=== PATIENT | female | born 1935 | race Caucasian/White ===

== ENCOUNTER 2018-12-09 10:05 | Inpatient (IN) ==
[2018-12-09 10:48] LABS: BASO# 0.02 X1000 (0.0-0.2); BASO% 0.1 % (0.0-0.8); EOS# 0.05 X1000 (0.0-0.7); EOS% 0.2 % (0.0-10.0); HEMATOCRIT 36.6 % (37.0-47.0); HEMOGLOBIN 12.4 g/dL (12.0-16.0); IMM GRAN% 0.4 % (0.0-0.5); LYMPH# 1.27 X1000 (1.2-3.4); LYMPH% 5.3 % (20.5-51.1); MCH 30.9 PG (27-31); MCHC 33.9 g/dL (33-37); MCV 91.3 FL (81-99); MONO# 1.01 X1000 (0.11-0.59); MONO% 4.2 % (1.7-9.3); MPV 10.1 FL (7.4-10.4); NEUT# 21.62 X1000 (1.4-6.5); NEUT% 89.8 % (42.2-75.2); PLT 378 X1000 (130-400); RBC 4.01 XMIL (4.2-5.4); RDW 12.7 % (11.5-14.5); WBC 24.07 X1000 (4.8-10.8)
--- NOTE | 2018-12-09 10:57 | PROVIDER DOCUMENTATION ---
HPI-General Adult - General Chief Complaint: General Adult Stated Complaint: WBC HIGH -URGENT CARE REFERRED Time Seen by Provider: 12/09/18 10:29 Source: patient, family (Daughter) Allergies/Adverse Reactions: Patient Allergies Allergy/AdvReac Type Severity Reaction Status Date / Time Sulfa (Sulfonamide Allergy RASH Verified 12/09/18 10:33 Antibiotics) codeine AdvReac NAUSEA/VOMI Verified 12/09/18 10:33 TING Home Medications: Home Medication List Medication Instructions Recorded Confirmed Last Taken Type Estrogens, Conjugated [Premarin] 1.25 mg PO DAILY 12/09/18 12/09/18 Unknown History Fluticasone/Salmet 100/50 INH 2 puff INH ORDERED 12/09/18 12/09/18 Unknown History [Advair 100/50 Diskus] Levothyroxine [Synthroid] 75 microgm PO DAILY 12/09/18 12/09/18 Unknown History Montelukast Sodium [Singulair] 1 tab PO DAILY 12/09/18 12/09/18 Unknown History Omeprazole [Prilosec] 40 mg PO DAILY 12/09/18 12/09/18 Unknown History Tiotropium Cyrus Inhaler 18 mcg INHALATION DAILY 12/09/18 12/09/18 Unknown History [Spiriva] Trazodone [Desyrel] 100 mg PO HS PRN PRN 12/09/18 12/09/18 Unknown History Triamterene/Hydrochlorothiazid 1 ea PO DAILY 12/09/18 12/09/18 Unknown History [Dyazide 37.5-25 Capsule] - History of Present Illness -Gen Adult Nature of Presenting Problems: Patient is an 83yo F who presents after being sent from Urgent Care. Patient reports she began experiencing fever, nausea, vomiting, and diarrhea 4 days ago. Reports she thought it was just a stomach virus that would pass. States yesterday she still had a fever so she went to an urgent care. Reports the urgent care diagnosed her with Bronchitis and a UTI. Reports she was sent home with Levaquin prescription for which she took the dose yesterday. Patient states she received a call from the urgent care this morning saying her WBC count was 25,000 and to come to the ER for IV antibiotics. Patient reports her symptoms have improved a little. Reports she is mildly nauseous but has not vomited today. Also reports she had 3 episodes of diarrhea today, but also contributes that to the Levaquin. Reports mild SOB. States she had her R lung removed in 2010 d/t lung cancer for which she has been in remission since. Patient denies abdominal pain, dizziness/weakness, cough, or CP. Reports her fever has resolved. Patient is able to speak in full sentences, no accessory muscle usage noted, no retractions noted, and no evidence of respiratory distress/compromise. Location of Pain/Injury: reports: generalized Pain Radiation: reports: no radiation Quality of Pain: reports: aching Severity: reports: mild Onset/Duration: reports: 4 days ago Timing: reports: still present Context/Activities at Onset: reports: none Modifying Factors: improves with: nothing Associated Symptoms: reports: diarrhea, fever/chills, genitourinary problems, nausea, shortness of breath. denies: chest pain, cough, diaphoresis, dizziness, EENT symptoms, headaches, sinus congestion/drainage, pain with inspiration, swelling/mass in abdomen, syncope, weakness, trouble walking Similar Symptoms Previously?: No Recently seen or treated by another doctor?: Yes (Seen at urgent care yesterday) Review of Systems - Adult - REVIEW OF SYSTEMS - ADULT Constitutional: reports: see HPI, chills, fever Eyes: denies: blurred vision, double vision, eye pain Ears, Nose, Mouth & Throat: denies: ear pain, sinus problem Cardiovascular: denies: chest pain, palpitations Respiratory: reports: shortness of breath. denies: cough, wheezing Gastrointestinal: reports: diarrhea, nausea. denies: abdominal pain, vomiting Genitourinary: reports: see HPI Musculoskeletal: reports: no symptoms reported Integumentary: reports: no symptoms reported Neurological: denies: dizziness/vertigo, headache/migraines Psychiatric: reports: no symptoms reported Endocrine: reports: no symptoms reported Past History - Adult - PAST MEDICAL HISTORY-ADULT Review of Records: reports: Nursing Assessment Review, Medications Reviewed Respiratory: reports: cancer - IMMUNIZATION STATUS Childhood Immunizations: See Nurse Assessment Flu Vaccine: See Nurse Assessment - FAMILY HISTORY Family History: reviewed, not pertinent - SOCIAL HISTORY Smoking: non-smoker Physical Exam-General - PHYSICAL EXAM-ADULT Initial Vital Signs Reviewed: Yes - CONSTITUTIONAL General Appearance: appears well, alert, no apparent distress. negative: lethargic, slow to respond, obtunded - EYES Eyes: PERRL/EOMI, pink conjunctivae - HEAD, EARS, NOSE, MOUTH & THROAT HENMT: normocephalic/atraumatic, moist mucous membranes - NECK Neck: non-tender, full range of motion, supple, normal inspection - RESPIRATORY Respiratory: chest non-tender, lungs clear, no pleuratic chest pain, no respiratory distress, no accessory muscle use. negative: normal breath sounds (decrased breath sounds on R d/t lobectomy), crackles, rales, rhonchi, stridor, wheezing, retractions, splinting - CARDIOVASCULAR Cardiovascular: tachycardia (103) - GASTROINTESTINAL (ABDOMEN) Abdominal Exam: soft, no organomegaly, no pulsatile mass, abnormal bowel sounds (hyperactive all quadrants), tenderness (mildly TTP generalized). negative: distended, guarding, rigid, rebound - MUSCULOSKELETAL Back Exam: normal inspection, no CVA tenderness Extremity: normal range of motion, non-tender, normal gait - SKIN Integumentary: normal color, warm/dry - NEUROLOGIC Neurologic: grossly normal - PSYCHIATRIC Psych/Mental Status: normal mood/affect, normal thought content, normal thought process, oriented x 3 Progress - PLAN OF CARE/RESULTS Progress/Plan/Lab Results: Vital Signs - 8 hr 12/09/18 10:08 Temperature 97.8 F Pulse Rate 103 H Respiratory Rate 20 Blood Pressure 155/83 O2 Sat by Pulse Oximetry 97 Laboratory Results - last 24 hr 12/09/18 10:21 WBC 24.07 H RBC 4.01 L Hgb 12.4 Hct 36.6 L MCV 91.3 MCH 30.9 MCHC 33.9 RDW Std Deviation 12.7 Plt Count 378 MPV 10.1 Immature Gran % (Auto) 0.4 Neut % (Auto) 89.8 H Lymph % (Auto) 5.3 L [place] % (Auto) 4.2 Eos % (Auto) 0.2 Baso % (Auto) 0.1 Immature Gran # (Auto) 0.10 H Neut # (Auto) 21.62 H Lymph # (Auto) 1.27 [place] # (Auto) 1.01 H Eos # (Auto) 0.05 Baso # (Auto) 0.02 Orders Category Date Time Status Saline Loc NOW Care 12/09/18 10:30 Active CHEST-2 VIEWS [RAD] Stat Exams 12/09/18 10:41 Ordered AMYLASE [CHEM] Stat Lab 12/09/18 10:21 Received CBC WITH ELECTRONIC DIFF [HEME] Stat Lab 12/09/18 10:21 Completed CK PROFILE [SP CHEM] Stat Lab 12/09/18 10:21 Received COMPREHENSIVE METABOLIC PANEL [CHEM] Stat Lab 12/09/18 10:21 Received D-DIMER [COAG] Stat Lab 12/09/18 10:21 Received LACTATE, PLASMA [CHEM] Stat Lab 12/09/18 10:21 Received LIPASE [CHEM] Stat Lab 12/09/18 10:21 Received PRO B-NATRIURETIC PEPTIDE Stat Lab 12/09/18 10:21 Received PROTIME WITH INR [COAG] Stat Lab 12/09/18 10:21 Received PTT [COAG] Stat Lab 12/09/18 10:21 Received URINALYSIS W/POSS RFLX CULT [URINALYSIS] Stat Lab 12/09/18 10:30 Uncollected EKG [EKG] Stat Ther 12/09/18 10:42 Ordered Result Diagrams: 12/09/18 10:21 12/09/18 10:21 - EKG 1 Time of EKG reading by physician:: 10:49 EKG Read and Signed by:: Jael Mcnamara EKG Interpretation (*Must complete 3 of following elements*): Abnormal Rate: 93 Rhythm: NSR [place]: normal QRS: RBB AK Interval: normal ST Wave: normal - XRAY 1 XRAY: Bilateral XRAY Study: Chest ([facility] [address], [address], [place] [address] Department of Imaging Patient: ANNIKA AVILEZ Date: 12/09/18#: [id number] : 1935DM Status: REG [facility]#: [id number] Age/Sex: 83/FRoom/Bed: Loc: ED Ordering Physician: Kiki Hobson Family Physician: None,PCP Reason for Procedure: mild SOB Signed EXAM: CHEST-2 VIEWS HISTORY: mild SOB TECHNIQUE: Chest two views COMPARISON: 08/18/2017 FINDINGS: The lungs are well expanded. There are extensive postsurgical changes to the right hemithorax. The mediastinum is sh ifted to the right. The heart is not enlarged. The vessels are not distended. There are no infiltrates. No pleural effusions. The overall appearance is similar to the prior exam. IMPRESSION: Stable chest. Electronically signed by Kirill Shetty 12/09/2018 11:20 AM 12/09/18 1120 Interpreting Physician: Kirill Shetty MD Dictated Date/Time: 12/09/18 1119 cc: Kiki Hobson; None,PCP) Impression: See EMR Report - CT/MRI 1 CT Study: Abdomen, Angiogram (Chest), Pelvis Impression: See EMR Report ([address], [address], [place] [address] Department of Imaging Patient: ANNIKA AVILEZ Date: 12/09/18#: [id number] : 6ADM Status: [facility]#: [id number] Age/Sex: 83/FRoom/Bed: Loc: ED Ordering Physician: Kiki Hobson Family Physician: None,PCP Reason for Procedure: abd pain - elevated WBC Signed EXAM: CT ABD/PELVIS/PULM ARTERIES INDICATION: abd pain - elevated WBC TECHNIQUE: This exam was performed using automated exposure control, adjustment of mA or kV according to patient size, and/or use of iterative reconstruction technique. Thin section axial images through the chest and 3-D MIPS were obtained. Standard imaging through the abdomen and pelvis was obtained. COMPARISON: CT chest without contrast dated 04/11/2016. No prior CT of the abdomen and pelvis is available for comparison. FINDINGS: CTA CHEST: There is no evidence of pulmonary embolism. There is patchy aortic atherosclerotic calcification but no evidence of aortic dissection or aneurysm. There is no significant mediastinal or hilar lymphadenopathy. There has been a prior partial pneumonectomy on the right and there is associated rightward mediastinal shift. These changes are stable. There is a stable chest wall deformity on the right related to the surgery. Posterior left lung base is stable. There is no pleural fluid collection and no pneumothorax. No airspace consolidation is appreciated. The regional skeleton is stable. CT ABDOMEN/PELVIS: The liver, gallbladder, spleen, pancreas, and adrenal glands are grossly unremarkable. There is abnormal left renal enhancement in a heterogeneous striated nephrogram pattern. There is surrounding mild perinephric stranding. These findings are most consistent with pyelonephritis. The right kidney is unremarkable. There is no hydronephrosis. The urinary bladder is grossly unremarkable. There has been a prior hysterectomy. There is uncomplicated diverticulosis coli. There is no evidence of bowel obstruction and no focal bowel wall thickening. The remainder of the GI tract is grossly unremarkable. No free abdominal gas or free fluid is identified. There is multilevel spondylosis throughout the lumbar spine. There are degenerative changes of both hips. No suspicious bony lesions are identified. IMPRESSION: 1.Findings consistent with left pyelonephritis. 2.No evidence of pulmonary embolism. 3.Stable postsurgical changes involving the chest. 4.Other incidental/nonacute findings detailed above. Electronically signed by Christiano Birch 12/09/2018 12:38 PM 12/09/18 1238 Interpreting Physician: Christiano Birch MD Dictated Date/Time: 12/09/18 1224 cc: Kiki Hobson; None,PCP) - CONSULTS/PCP/HOSPITALIST Notification #1 *Consult/PCP/Hospitalist*: HILDA Sanders (Hospitalist for Aj) Time Discussed: 13:08 Reason/Comments: Pyelonephritis; leukocytosis; hyponatremia Consult Disposition: Admit Departure - Departure Date of Disposition Decision: 12/09/18 Time of Disposition Decision: 13:09 DIAGNOSIS: Pyelonephritis of left kidney, Hyponatremia Leukocytosis Qualifiers: Leukocytosis type: unspecified Qualified Code(s): D72.829 - Elevated white blood cell count, unspecified Nausea and vomiting Qualifiers: Vomiting type: unspecified Vomiting Intractability: non-intractable Qualified Code(s): R11.2 - Nausea with vomiting, unspecified Disposition: ADMITTED INPATIENT 09 Certified Medical Emergency: Emergent Condition: Stable Referrals and Follow-Ups: None,PCP [Primary Care Provider] - - Critical Care Note This patient required my direct & personal management of CC.: No Attestation - Physician/ ADELINE Attestation Patient care was provided by Advanced Practice Provider:: Yes Advanced Practice Provider:: Kiki Hobson Advanced Practice Provider documentation review:: The Mid-level provider documentation, treatment plan and medical decision making was reviewed by the jeff roberts who agrees with all treatment and medical decision making by the MLP. The physician spent face to face time with patient:: No Advanced Practice Provider documentation review:: Supervising physician onsite and consulted in the evaluation and care of this patient. The physician did not have a face to face encounter with the patient.
[2018-12-09 11:00] LABS: INR 0.84; PROTIME 12.2 Seconds (11.0-16.0); PTT 32.2 Seconds (22.3-41.8)
[2018-12-09 11:03] LABS: D-DIMER 1.28 ug/mLFEU (0.0-0.52)
--- NOTE | 2018-12-09 11:06 | EKG Report ---
Test Performed on : 12/09/2018 10:48:45 AM Test Reason : SOB Blood Pressure : / mmHG Vent. Rate : 093 BPM Atrial Rate : 093 BPM P-R Int : 124 ms QRS Dur : 148 ms QT Int : 372 ms P-R-T Axes : 053 -07 007 degrees QTc Int : 462 ms Normal sinus rhythm. Right bundle branch block Abnormal ECG No previous ECGs available Unconfirmed Result
[2018-12-09 11:09] LABS: ESTIMATED GFR > 60
[2018-12-09 11:10] LABS: AGAP 13; ALB/GLOB RATIO 0.8; ALBUMIN 3.3 g/dL (3.5-5.0); ALKALINE PHOSPHATASE 152 U/L (32-104); AMYLASE 23 U/L (20-200); BUN 19 mg/dL (8-22); CALCIUM 8.7 mg/dL (8.8-10.2); CHLORIDE 85 mmol/L (98-107); COSMO 260; CREATININE 0.8 mg/dL (0.5-0.9); GLUCOSE 150 mg/dL (70-104); GOT 51 U/L (10-30); GPT 25 U/L (10-36); LIPASE 20 U/L (13-60); POTASSIUM 3.7 mmol/L (3.5-5.1); SODIUM 127 mmol/L (136-145); TCO2 29 mmol/L (25-35); TOTAL BILIRUBIN 0.34 mg/dL (0.20-1.00); TOTAL PROTEIN 7.6 g/dL (6.3-8.3)
[2018-12-09] MEDS ORDERED: ZOFRAN IV ONE (11:13)
--- NOTE | 2018-12-09 11:22 | Diag Imaging Result Doc PS360 ---
EXAM: CHEST-2 VIEWS HISTORY: mild SOB TECHNIQUE: Chest two views COMPARISON: 08/18/2017 FINDINGS: The lungs are well expanded. There are extensive postsurgical changes to the right hemithorax. The mediastinum is shifted to the right. The heart is not enlarged. The vessels are not distended. There are no infiltrates. No pleural effusions. The overall appearance is similar to the prior exam. IMPRESSION: Stable chest. Electronically signed by Kirill Shetty 12/09/2018 11:20 AM
[2018-12-09] MEDS ORDERED: NS 1,000 ML IV ONE (11:31)
[2018-12-09 12:15] LABS: URINE SOURCE CLEAN CATCH
[2018-12-09 12:18] LABS: BILIRUBIN URINE NEGATIVE (NEGATIVE); BLOOD URINE TRACE (NEGATIVE); COLOR YELLOW; GLUCOSE URINE NEGATIVE (NEGATIVE); KETONE URINE NEGATIVE (NEGATIVE); LEUKOCYTES URINE NEGATIVE (NEGATIVE); NITRITE URINE NEGATIVE (NEGATIVE); PH URINE 6.5; PROTEIN URINE NEGATIVE (NEGATIVE); SP GRAVITY URINE 1.003; TURBIDITY URINE CLEAR (CLEAR); UROBILINOGEN URINE NORMAL (NORMAL)
[2018-12-09 12:19] LABS: UR EPITHELIAL CELLS <10 /HPF (<10); URINE BACTERIA NEGATIVE /HPF; URINE RBC <10 /HPF (<10); URINE WBC <10 /HPF (<10)
--- NOTE | 2018-12-09 12:41 | Diag Imaging Result Doc PS360 ---
EXAM: CT ABD/PELVIS/PULM ARTERIES INDICATION: abd pain - elevated WBC TECHNIQUE: This exam was performed using automated exposure control, adjustment of mA or kV according to patient size, and/or use of iterative reconstruction technique. Thin section axial images through the chest and 3-D MIPS were obtained. Standard imaging through the abdomen and pelvis was obtained. COMPARISON: CT chest without contrast dated 04/11/2016. No prior CT of the abdomen and pelvis is available for comparison. FINDINGS: CTA CHEST: There is no evidence of pulmonary embolism. There is patchy aortic atherosclerotic calcification but no evidence of aortic dissection or aneurysm. There is no significant mediastinal or hilar lymphadenopathy. There has been a prior partial pneumonectomy on the right and there is associated rightward mediastinal shift. These changes are stable. There is a stable chest wall deformity on the right related to the surgery. Posterior left lung base is stable. There is no pleural fluid collection and no pneumothorax. No airspace consolidation is appreciated. The regional skeleton is stable. CT ABDOMEN/PELVIS: The liver, gallbladder, spleen, pancreas, and adrenal glands are grossly unremarkable. There is abnormal left renal enhancement in a heterogeneous striated nephrogram pattern. There is surrounding mild perinephric stranding. These findings are most consistent with pyelonephritis. The right kidney is unremarkable. There is no hydronephrosis. The urinary bladder is grossly unremarkable. There has been a prior hysterectomy. There is uncomplicated diverticulosis coli. There is no evidence of bowel obstruction and no focal bowel wall thickening. The remainder of the GI tract is grossly unremarkable. No free abdominal gas or free fluid is identified. There is multilevel spondylosis throughout the lumbar spine. There are degenerative changes of both hips. No suspicious bony lesions are identified. IMPRESSION: 1.Findings consistent with left pyelonephritis. 2.No evidence of pulmonary embolism. 3.Stable postsurgical changes involving the chest. 4.Other incidental/nonacute findings detailed above. Electronically signed by Christiano Birch 12/09/2018 12:38 PM
[2018-12-09] MEDS ORDERED: LEVAQUIN 500 MG/D5W 500 MG/100 ML IVPB IV ONE (12:48)
[2018-12-09] MEDS ORDERED: NS 1,000 ML IV SCH (14:15)
[2018-12-09] MEDS ORDERED: ZOFRAN IV PRN (14:40)
[2018-12-09] MEDS ORDERED: TYLENOL PO PRN (14:40)
[2018-12-09] MEDS: LOVENOX SUBQ SCH (16:14)
[2018-12-09] MEDS: ADVAIR 100/50 DISKUS INH SCH (19:55)
--- NOTE | 2018-12-09 19:55 | HISTORY AND PHYSICAL ---
CHIEF COMPLAINT: Subjective fever, nausea, vomiting, and diarrhea 4 days ago. She was seen at an urgent care center and sent here for further evaluation and treatment. HISTORY OF PRESENTING ILLNESS: This is an 83-year-old female who presents to [facility] ER after she was seen at an urgent care center yesterday after experiencing fever, nausea, vomiting, and diarrhea for 4 days prior. The urgent care center diagnosed her with a bronchitis, and a UTI and sent her home with a prescription for Levaquin and she got it filled and took a dose yesterday. States she received a call from the Urgent Care this morning, stating that her white blood cell count was elevated at 25,000 and she needed to come to the emergency room for evaluation. Her symptoms, she states, have improved, but she still mildly nauseous, but has not vomited today. She has had 3 episodes of diarrhea today, but also relates that to starting her Levaquin. She is noted to have had a history of lung cancer and had her right lung removed in 2010 and has been in remission. The fever has resolved. When she arrived her temperature was 97.8 degrees. LABORATORY DATA: Showed a white blood cell count of 24.07. D-dimer of 1.28. Sodium level of 127 with a chloride of 85. Plasma lactate was 1.7. Urinalysis was negative. We did a CT of the abdomen and pelvis and a CTA of the chest. Findings were consistent with a left pyelonephritis and no evidence of pulmonary embolism, so she is being admitted for further evaluation and treatment. PAST MEDICAL HISTORY: Hypothyroidism, GERD, COPD and lung cancer. PAST SURGICAL HISTORY: , hysterectomy and a right upper and middle lobe removal and partial lower lobe removal in 2010. FAMILY HISTORY: Reviewed and noncontributory. SOCIAL HISTORY: She currently lives alone. Denies current tobacco use. States she was a former smoker and quit in 1989. Denied any alcohol or illicit drug use. ALLERGIES: Sulfa and codeine. HOME MEDICATIONS: Will be reviewed and restarted. LABORATORY DATA: Showed a white blood cell count of 24.07, hemoglobin 12.4, hematocrit 36.6, platelets of 378,000. PT and INR of 12.2 and 0.84. D-dimer of 1.28. Sodium 127, potassium 3.7, chloride 85, CO2 29, BUN of 19, creatinine of 0.8, glucose of 150, plasma lactate of 1.7. Amylase and lipase were normal at 23 and 20. Urinalysis was negative. CT of the abdomen and pelvis and a CTA of the chest showed findings consistent of a left pyelonephritis and no evidence of pulmonary embolism. REVIEW OF SYSTEMS: She was positive for a subjective fever, nausea, vomiting, diarrhea. Denied any chest pain, coughing, shortness of breath denied any abdominal pain, constipation, or burning or hurting with urination. PHYSICAL EXAMINATION: VITAL SIGNS: On arrival, she had a temperature of 97.8 degrees, pulse 103, respirations 20, blood pressure 155/83, saturating 97% on room air. GENERAL: This is an 83-year-old female who is sitting up in the bed and answers questions appropriately. HEENT: Normocephalic and atraumatic. Normal ENT inspection. Oropharynx and nares are clear. Eyes: Pupils are equal, round, and reactive to light and accommodation. Extraocular movements are intact. NECK: Normal inspection. Normal range of motion. LUNGS: On the left, were clear. Decreased breath sounds on the right due to her pneumonectomy. Equal lung expansion. Chest wall movement noted. HEART: Regular rate and rhythm. No murmurs, rubs, or gallops. ABDOMEN: Soft, nontender, nondistended. Bowel sounds are present x4 quadrants. MUSCULOSKELETAL: She had 5/5 strength x4 extremities. NEUROLOGICAL: The cranial nerves II through XII appear grossly intact. ASSESSMENT: 1. Left pyelonephritis. 2. Leukocytosis. 3. An elevated D-dimer ruled out for a pulmonary embolus. 4. Hyponatremia. PLAN: She will be admitted to the medical unit at [place]. She uses O2 at 2 L via nasal cannula at bedtime for her chronic obstructive pulmonary disease. We are going to do a venous ultrasound of bilateral lower extremities. Place on Lovenox 40 mg subcutaneous q. 24 hours until we completely rule out for deep vein thrombosis. We have ruled out for a pulmonary embolus. Place her on Levaquin 500 mg IV q. 24. She is on normal saline at 125 mL an hour. We will continue her home medications. Recheck a CBC, BMP in the a.m. Normal saline at 125 mL an hour, and further orders after seen by attending. Dictated by HILDA Curran for Negro Lopez MD Addendum: Patient seen and examined by myself. Agree with HILDA note. It reflects my assessment and plan. Patient is being admitted to hospital for pyelonephritis. Will start Ceftriaxone and will wait for results of urine culture and will check CBC daily. cc: HILDA Curran MD [facility]
[2018-12-09] MEDS ORDERED: LABETALOL IV ONE (21:21)
[2018-12-09] MEDS: SINGULAIR PO SCH (21:56)
[2018-12-09] MEDS: DESYREL PO PRN (21:56)
--- NOTE | 2018-12-09 22:50 | Extremity Venous Study ---
PROCEDURE NAME: Venous U/S Bilateral Legs - 12/09/2018 REQUEST PHYSICIAN: Dr. Rocha. READING PHYSICIAN: Dr. Jasso. KNOCKOUT MACHINE OPERATOR: Zay. INDICATION: Elevated D-dimer. FINDINGS: The deep and superficial veins of both lower extremities were imaged throughout their course. They are compressible, patent, and without thrombus. There are also numerous levels of reflux noted in the right common femoral, greater saphenous veins and the left common femoral, greater saphenous, and superficial femoral veins. INTERPRETATION: No deep venous thrombosis or superficial vein thrombus of either lower extremity. There is deep and superficial reflux bilaterally, as described above. cc: MD Marilyn Laguna CRNP
[2018-12-10] MEDS: PRILOSEC PO SCH (06:36)
[2018-12-10 07:31] LABS: BASO# 0.03 X1000 (0.0-0.2); BASO% 0.2 % (0.0-0.8); EOS# 0.01 X1000 (0.0-0.7); EOS% 0.1 % (0.0-10.0); HEMATOCRIT 36.5 % (37.0-47.0); HEMOGLOBIN 12.1 g/dL (12.0-16.0); IMM GRAN# 0.06 X1000 (0.0-0.04); IMM GRAN% 0.4 % (0.0-0.5); LYMPH# 1.45 X1000 (1.2-3.4); LYMPH% 8.6 % (20.5-51.1); MCH 30.9 PG (27-31); MCHC 33.2 g/dL (33-37); MCV 93.4 FL (81-99); MONO# 1.57 X1000 (0.11-0.59); MONO% 9.3 % (1.7-9.3); MPV 9.7 FL (7.4-10.4); NEUT% 81.4 % (42.2-75.2); PLT 412 X1000 (130-400); RBC 3.91 XMIL (4.2-5.4); RDW 13.1 % (11.5-14.5); WBC 16.82 X1000 (4.8-10.8)
[2018-12-10 07:42] LABS: AGAP 11; BUN 10 mg/dL (8-22); CALCIUM 8.9 mg/dL (8.8-10.2); CHLORIDE 91 mmol/L (98-107); COSMO 266; CREATININE 0.7 mg/dL (0.5-0.9); ESTIMATED GFR > 60; GLUCOSE 116 mg/dL (70-104); POTASSIUM 3.4 mmol/L (3.5-5.1); SODIUM 133 mmol/L (136-145); TCO2 31 mmol/L (25-35)
[2018-12-10] MEDS: SYNTHROID PO SCH (08:08)
[2018-12-10] MEDS: PREMARIN PO SCH (08:09)
[2018-12-10] MEDS ORDERED: SINGULAIR PO SCH (09:00)
[2018-12-10] MEDS: ROCEPHIN 1 GM in NS 50 ML IV SCH (10:12)
[2018-12-10] MEDS: SPIRIVA INH SCH (11:27)
[2018-12-10] MEDS: ADVAIR 100/50 DISKUS INH SCH ×2 (11:27→19:56)
[2018-12-10] MEDS: LEVAQUIN 500 MG/D5W 500 MG/100 ML IVPB IV SCH (14:08)
[2018-12-10] MEDS: LOVENOX SUBQ SCH (14:09)
--- NOTE | 2018-12-10 14:39 | PROGRESS NOTE ---
DATE: 12/10/2018 SUBJECTIVE: Patient reports feeling tired but no more fever or diarrhea. OBJECTIVE: Vital Signs: Temperature 98.1 degrees, heart rate 96, respiratory rate 20, blood pressure 161/62, and O2 saturation 100% on room air. General: This is an 83-year-old female lying in bed in no acute distress. HEENT: Head is normocephalic and atraumatic. Neck: No JVD noted. No carotid bruits. No lymphadenopathy. No thyromegaly. Cardiovascular: S1, S2 heard. No murmurs, gallops, or rubs. Regular rate and rhythm. Respiratory: Clear bilaterally to auscultation. No work of breathing or using accessory muscles. Abdomen: Soft. A little bit tender to palpation in the suprapubic area. No organomegaly noted. Extremities: No clubbing, cyanosis, or edema. Peripheral pulses present in both legs. Neurological: Patient is alert and oriented x3. Moves all 4 extremities. LABORATORY DATA: White cell count is 16.92, potassium 3.4, ProBNP was elevated to 3500. ASSESSMENT/PLAN: 1. Acute left pyelonephritis. The patient is on Levaquin. We are going to add ceftriaxone. So far, white cell count is getting better. We will continue with the same management. 2. Elevated D-dimer. We have done a CT angiogram of the chest to rule out PE that was negative. Also, we checked ultrasound of both lower extremities, and they were also normal. I think at this point, any clotting problem has been ruled out. 3. Hyponatremia definitely much better. 4. Elevated proBNP. We are going to check an echocardiogram to see if there are any heart problem considering this elevated proBNP, but the patient does not look to be on CHF exacerbation. cc: Negro Lopez MD MTDSarita
--- NOTE | 2018-12-10 20:30 | ECHO REPORT ---
ORDER DATE: 12/10/2018 INDICATION: Shortness of breath. FINDINGS: 1. The right atrium appears normal in size at 3.7 cm. 2. Mild tricuspid regurgitation. RV systolic pressure of 59. 3. Normal RV size and systolic function. 4. No significant pulmonic insufficiency. 5. Normal left atrial size with a volume index of 23 and a dimension of. 2.8 cm. 6. No mitral prolapse. Trace mitral regurgitation. No evidence of mitral stenosis. 7. Normal LV size, end-diastolic dimension of 4 cm. Normal wall thicknesses with a posterior and interventricular septal wall thickness of 1 cm each. Normal LV systolic function. Estimated EF of 60% to 65% with normal wall motion and aortic valve. 8. Aortic valve opens well. No evidence of stenosis or insufficiency. 9. Aorta appears normal in visualized segments. 10. No pericardial effusion seen. cc: MD Negro Christian MD
[2018-12-10] MEDS: DESYREL PO PRN (20:59)
[2018-12-10] MEDS: SINGULAIR PO SCH (20:59)
[2018-12-11] MEDS: PRILOSEC PO SCH (06:40)
[2018-12-11 07:27] LABS: BASO# 0.04 X1000 (0.0-0.2); BASO% 0.3 % (0.0-0.8); EOS# 0.02 X1000 (0.0-0.7); EOS% 0.1 % (0.0-10.0); HEMATOCRIT 35.7 % (37.0-47.0); HEMOGLOBIN 11.6 g/dL (12.0-16.0); IMM GRAN% 0.7 % (0.0-0.5); LYMPH# 1.95 X1000 (1.2-3.4); MCH 30.4 PG (27-31); MCHC 32.5 g/dL (33-37); MCV 93.7 FL (81-99); MONO# 1.44 X1000 (0.11-0.59); MONO% 10.4 % (1.7-9.3); MPV 9.3 FL (7.4-10.4); NEUT# 10.36 X1000 (1.4-6.5); NEUT% 74.5 % (42.2-75.2); PLT 399 X1000 (130-400); RBC 3.81 XMIL (4.2-5.4); RDW 13.3 % (11.5-14.5); WBC 13.91 X1000 (4.8-10.8)
[2018-12-11 07:43] LABS: AGAP 11; BUN 6 mg/dL (8-22); CALCIUM 8.6 mg/dL (8.8-10.2); CHLORIDE 94 mmol/L (98-107); COSMO 271; CREATININE 0.6 mg/dL (0.5-0.9); ESTIMATED GFR > 60; GLUCOSE 129 mg/dL (70-104); SODIUM 136 mmol/L (136-145); TCO2 31 mmol/L (25-35)
[2018-12-11 08:12] LABS: BANDS 4 % (0-1); LYMPHS 16 % (21-51); MONO 10 % (1-9); SEGS 70 % (42-75)
[2018-12-11] MEDS: ADVAIR 100/50 DISKUS INH SCH ×2 (08:28→19:40)
[2018-12-11] MEDS: SPIRIVA INH SCH (08:28)
[2018-12-11] MEDS: SYNTHROID PO SCH (10:22)
[2018-12-11] MEDS: PREMARIN PO SCH (10:22)
[2018-12-11] MEDS: ROCEPHIN 1 GM in NS 50 ML IV SCH (10:23)
[2018-12-11] MEDS ORDERED: KLOR-CON PO ONE (10:27)
[2018-12-11] MEDS: PERICOLACE PO SCH (11:19)
--- NOTE | 2018-12-11 13:39 | PROGRESS NOTE ---
DATE: 12/11/2018 SUBJECTIVE: The patient reports feeling fine. Denies any fever or chills. OBJECTIVE: Vital Signs: Temperature 98 degrees, heart rate 97, respiratory rate 18, blood pressure 145/56, O2 saturation 100% on 2 L nasal cannula. General: This is an 83-year-old female, lying in bed, in no acute distress. HEENT: Head is normocephalic, atraumatic. Neck: No JVD noted. No carotid bruits. No lymphadenopathy. No thyromegaly. Cardiovascular: S1, S2 heard. No murmurs, gallops, or rubs. Regular rate and rhythm. Respiratory: Clear bilaterally to auscultation. No work of breathing or using accessory muscles. Abdomen: Soft, a little bit tender to palpation in the suprapubic area but no organomegaly noted. Extremities: No clubbing, cyanosis, or edema. Peripheral pulses present in both legs. Neurological: Patient is alert and oriented x3. Moves 4 extremities. LABORATORY DATA: White cell count is 13.99, hemoglobin 11.6, hematocrit 35.7, and platelets 399,000. Potassium 3.0. ASSESSMENT AND PLAN: 1. Acute left pyelonephritis. We will continue with Levaquin and ceftriaxone. White cell count is getting better. We will continue with same management. If this patient has a normal white count and continues to feel fine, we can discharge her tomorrow. 2. Hyponatremia, resolved. 3. Elevated pro BMP. Because of possibility for any congestive heart failure, we ordered an echocardiogram which basically shows no abnormalities. 4. Disposition. We will continue with the same management and we will discharge this patient if white count is back to normal tomorrow. cc: Negro Lopez MD
[2018-12-11] MEDS: LOVENOX SUBQ SCH (13:57)
[2018-12-11] MEDS: LEVAQUIN 500 MG/D5W 500 MG/100 ML IVPB IV SCH (13:57)
[2018-12-11] MEDS ORDERED: DYAZIDE PO SCH (21:00)
[2018-12-11] MEDS ORDERED: MELATONIN PO SCH (21:00)
[2018-12-11] MEDS: SINGULAIR PO SCH (22:39)
[2018-12-11] MEDS: DESYREL PO PRN (22:45)
[2018-12-12] MEDS: PRILOSEC PO SCH (06:10)
[2018-12-12 07:18] LABS: HEMATOCRIT 37.5 % (37.0-47.0); HEMOGLOBIN 12.4 g/dL (12.0-16.0); MCH 31.1 PG (27-31); MCHC 33.1 g/dL (33-37); MPV 9.2 FL (7.4-10.4); PLT 471 X1000 (130-400); RBC 3.99 XMIL (4.2-5.4); RDW 13.3 % (11.5-14.5); WBC 13.89 X1000 (4.8-10.8)
[2018-12-12 07:19] LABS: BASO# 0.09 X1000 (0.0-0.2); BASO% 0.6 % (0.0-0.8); EOS# 0.05 X1000 (0.0-0.7); EOS% 0.4 % (0.0-10.0); IMM GRAN# 0.18 X1000 (0.0-0.04); IMM GRAN% 1.3 % (0.0-0.5); LYMPH% 21.6 % (20.5-51.1); MONO# 1.44 X1000 (0.11-0.59); MONO% 10.4 % (1.7-9.3); NEUT# 9.13 X1000 (1.4-6.5); NEUT% 65.7 % (42.2-75.2)
[2018-12-12 07:22] LABS: AGAP 11; BUN 8 mg/dL (8-22); CALCIUM 8.9 mg/dL (8.8-10.2); CHLORIDE 97 mmol/L (98-107); COSMO 271; CREATININE 0.6 mg/dL (0.5-0.9); ESTIMATED GFR > 60; GLUCOSE 117 mg/dL (70-104); POTASSIUM 3.7 mmol/L (3.5-5.1); SODIUM 136 mmol/L (136-145); TCO2 28 mmol/L (25-35)
[2018-12-12 07:28] LABS: LYMPHS 22 % (21-51); MONO 11 % (1-9); SEGS 67 % (42-75)
[2018-12-12] MEDS: ADVAIR 100/50 DISKUS INH SCH (08:01)
[2018-12-12] MEDS: SPIRIVA INH SCH (08:01)
[2018-12-12 08:17] VITALS: BP 154/56
[2018-12-12] MEDS: SYNTHROID PO SCH (09:28)
[2018-12-12] MEDS: PREMARIN PO SCH (09:28)
[2018-12-12] MEDS: ROCEPHIN 1 GM in NS 50 ML IV SCH (09:28)
[2018-12-12] MEDS: PERICOLACE PO SCH (09:28)
--- NOTE | 2018-12-12 10:43 | DISCHARGE SUMMARY ---
ADMISSION DATE: 12/09/2018 DISCHARGE DATE: 12/12/2018 PRIMARY CARE PHYSICIAN: None. ADMISSION DIAGNOSES: 1. Left pyelonephritis. 2. Leukocytosis. 3. An elevated D-dimer, ruled out for pulmonary embolism. 4. Hyponatremia. DISCHARGE DIAGNOSES: 1. An acute left pyelonephritis, improved. 2. Hyponatremia, resolved. 3. Leukocytosis, resolved. SUMMARY OF FINDINGS: This is an 83-year-old female who presented to the emergency room after she was seen at an urgent care center the day prior after experiencing fever, nausea, and diarrhea for 4 days. The urgent care center had diagnosed her with a bronchitis and a UTI, and sent her home with a prescription for Levaquin. She got it filled and took the dose the day prior to arriving. States she received a call from the urgent care on the morning of arrival, stating that her white blood cell count was elevated at 25,000 and she needed to come to the emergency room for evaluation. Her symptoms have improved, according to the patient, but still mildly nauseous but had not vomited. Had 3 episodes of diarrhea but related that to starting her Levaquin. She was placed on IV antibiotics. We did rule her out for any PE with a CTA of the pulmonary arteries that showed no pulmonary embolism. Her CT of the abdomen and pelvis showed findings consistent with a left pyelonephritis. The urine culture had no growth. Her white blood cell count is down to 13.89. Her electrolytes are all within normal limits so it is felt that she can safely be discharged home as she has been afebrile for greater than 24 hours. DISCHARGE MEDICATIONS: Include Premarin 1.25 mg p.o. daily, Advair 100/50 two puffs inhalation as order, Synthroid 75 mcg p.o. daily, Singulair 10 mg p.o. daily, omeprazole 40 mg p.o. daily, Spiriva 18 mcg inhalation daily, trazodone 100 mg p.o. at bedtime p.r.n., triamterene 37.5/25 one p.o. daily. FOLLOWUP: She needs to obtain a primary care physician in order to follow up. We will give her the physician referral line to obtain a primary care physician. TIME SPENT: This is a 33 minute discharge. Dictated by HILDA Curran for Negro Lopez MD Addendum: Patient seen and examined by myself. Agree with HILDA note. It reflects my assessment and plan. Patient is being discharged in stable condition. Will be seen by PCP in a week. cc: HILDA Curran MD [facility]
[2018-12-12] MEDS ORDERED: DIFLUCAN PO ONE (10:44)
== END 2018-12-12 11:28 | disposition home or self-care (01) | DRG 872 ==
LOC: ED 10:05 → 3N 14:14
PROVIDERS: ATTEND Internal Medicine
CPT/HCPCS: 71020; 71046; 71275; 74177; 80048; 80053; 81001; 82150; 82550; 83605; 83690; 83880; 85025; 85379; 85610; 85730; 87088; 93005; 93306; 93970; 94640; 94761; 96361; 96365; 96375; 97163; 99285; A9270; J0696; J1650; J1956; J2405; J7030; Q9967